=== PATIENT | female | born 1995 | race Caucasian/White ===

== ENCOUNTER 2017-11-09 13:22 | Emergency (ER) | payer BC, SELFPAY ==
[2017-11-09 13:26] VITALS: BP 142/84; PULSE 120; RESP 22; TEMP 36.7; O2SAT 100
[2017-11-09 13:30] VITALS: BP 142/84; PULSE 120; RESP 22; TEMP 36.7; O2SAT 100; BMI 20.3
[2017-11-09 13:31] VITALS: BMI 20.3
--- NOTE | 2017-11-09 13:34 | XR_ITS ---
XR chest AP COMPARISON: None HISTORY: Chest pain after falling off horse TECHNIQUE: AP upright chest FINDINGS: The lung dover are well expanded and appear clear of infiltrate. The cardiac silhouette and vascularity are normal. Is no obvious rib fracture on either side and there is no pneumothorax. IMPRESSION: Negative AP upright chest
--- NOTE | 2017-11-09 13:34 | CT_ITS ---
CT pelvis wo con COMPARISON: None HISTORY: Pelvic pain after falling of a horse TECHNIQUE: Multiple axial scans of the pelvis were obtained utilizing bony algorithm. Sagittal and coronal reformats were evaluated as well. FINDINGS: The iliac bones and pubic bones appear intact. The symphysis pubis appears normal. Both hips are normally articulated with no evidence of fracture. The soft tissues are normal. The uterus and urinary bladder appear grossly normal. IMPRESSION: Negative CT scan of the pelvis
--- NOTE | 2017-11-09 13:34 | CT_ITS ---
CT lumbar spine wo con COMPARISON: None HISTORY: Low back pain after falling off a horse TECHNIQUE: Multiple axial scans of the lumbar spine were obtained. Sagittal and coronal reformats were evaluated as well. FINDINGS: Curvature and alignment are normal. All lumbar vertebrae appear intact and disc spaces are well-maintained. There is no abnormal disc protrusion. The facet joints appear normal and the SI joints are normal. IMPRESSION: Normal CT scan lumbar spine
--- NOTE | 2017-11-09 13:34 | [facility].EDFALL ---
ED Disposition Clinical Impression: Fall from horse, Contusion of lower back and pelvis, initial encounter Disposition: Home, Self-Care Condition on Discharge: Fair Additional Instructions: 1- rest and head inj instructions. 2- ice. 3- use OTc medications for pain. 4- return if needed. 5- follow up with pcp in AM. - Critical Care Critical Care Time: No Attestation: On , the high probability of a clinically significant, sudden or life threatening deterioration of the following system(s) required my full and direct attention, intervention and personal management. The time I documented below is in addition to time spent performing reported procedures but includes the following listed in this critical care notation. Medical Decision Making - Earnest Inquiry Pt receiving controlled substance: Yes Earnest was queried for this patient: No Risks and benefits of using a controlled substance: were discussed with pt by me Vital Signs: 11/09/17 13:26 11/09/17 13:30 11/09/17 14:12 Temperature 98.1 F 98.1 F Temperature Source Oral Oral Pulse Rate [Left Brachial] 120 H Pulse Rate [Right Brachial] 120 H 87 Respiratory Rate 22 22 18 Blood Pressure [Left Arm] 142/84 142/84 128/80 Blood Pressure Mean [Left Arm] 103 103 96 Blood Pressure Source [Left Arm] Manual Cuff/ Auscultation Manual Cuff/ Auscultation Automatic Cuff Blood Pressure Position [Left Arm] Sitting Sitting Sitting 02 Sat by Pulse Oximetry 100 100 98 Oxygen Delivery Method Room Air Room Air Room Air 11/09/17 14:50 Temperature Temperature Source Pulse Rate [Left Brachial] Pulse Rate [Right Brachial] 91 H Respiratory Rate 18 Blood Pressure [Left Arm] 131/84 Blood Pressure Mean [Left Arm] 99 Blood Pressure Source [Left Arm] Automatic Cuff Blood Pressure Position [Left Arm] Sitting 02 Sat by Pulse Oximetry 100 Oxygen Delivery Method Room Air - Lab Data Lab Results 11/09/17 13:35: WBC 10.1, RBC 4.29, Hgb 13.3, Hct 41.2, MCV 96.1, MCH 30.9, MCHC 32.2, RDW 12.2, Plt Count 290, MPV 8.1, Neut % (Auto) 61.5, Lymph % (Auto) 30.9, [place] % (Auto) 4.3, Eos % (Auto) 2.5, Baso % (Auto) 0.8, Neut # (Auto) 6.2, Lymph # (Auto) 3.1, [place] # (Auto) 0.4, Eos # (Auto) 0.3, Baso # (Auto) 0.1 11/09/17 13:35: Sodium 140, Potassium 3.7, Chloride 104, Carbon Dioxide 25, Anion Gap 14.7, BUN 16, Creatinine 0.94, Estimated Creat Clear 87, Estimated GFR 74, Est GFR ( Amer) 90, Glucose 133 H, Calcium 8.8, Total Bilirubin 0.4, AST 15, ALT 20, Alkaline Phosphatase 78, Total Protein 7.5, Albumin 3.8, Globulin 3.7 H, Albumin/Globulin Ratio 1.0 L 11/09/17 13:35: Serum HCG, Qual Negative 11/09/17 15:20: Urine Color Yellow, Urine Appearance Sl cloudy, Urine pH 6.5, Ur Specific [place] 1.010, Urine Protein Negative, Urine Glucose (UA) Negative, Urine Ketones Negative, Urine Blood Negative, Urine Nitrate Negative, Urine Bilirubin Negative, Urine Urobilinogen 0.2, Ur Leukocyte Esterase Trace, Urine WBC 3-5, Ur Squamous Epith Cells 10-20, Urine Bacteria Trace Result diagrams: 11/09/17 13:35 11/09/17 13:35 Orders (Tests/Meds): ED MEDICATIONS Discontinued Medications Generic Name Dose Route Start Last Admin Trade Name Freq PRN Reason Stop Dose Admin Sodium Chloride 1,000 mls @ 999 mls/hr 11/09/17 14:15 11/09/17 13:30 Sod Chlor 0.9% 1000ml Bag IV 11/09/17 15:15 999 mls/hr .[id number] ROSELIA Administration Iopamidol 75 ml 11/09/17 15:17 11/09/17 15:18 [id number]; 75ml Vial IV 11/09/17 15:18 75 ml ONCE ONE Administration Morphine Sulfate 2 mg 11/09/17 13:34 11/09/17 13:35 Morphine 4mg/Ml Syringe IV 11/09/17 13:35 2 mg ONCE ONE Administration Ondansetron HCl 4 mg 11/09/17 13:34 11/09/17 13:35 Zofran 4mg/2ml Vial IV 11/09/17 13:35 4 mg ONCE ONE Administration Sodium Chloride 10 ml 11/09/17 15:17 11/09/17 15:18 Rad-Saline Flush 10ml Syringe IV 11/09/17 15:18 10 ml ONCE ONE Administration ORDERS Melissa
--- NOTE | 2017-11-09 13:37 | ED_ITS ---
ED Disposition Clinical Impression: Fall from horse, Contusion of lower back and pelvis, initial encounter Disposition: Home, Self-Care Condition on Discharge: Fair Additional Instructions: 1- rest and head inj instructions. 2- ice. 3- use OTc medications for pain. 4- return if needed. 5- follow up with pcp in AM. - Critical Care Critical Care Time: No Attestation: On , the high probability of a clinically significant, sudden or life threatening deterioration of the following system(s) required my full and direct attention, intervention and personal management. The time I documented below is in addition to time spent performing reported procedures but includes the following listed in this critical care notation. Medical Decision Making - Earnest Inquiry Pt receiving controlled substance: Yes Earnest was queried for this patient: No Risks and benefits of using a controlled substance: were discussed with pt by me Vital Signs: 11/09/17 13:26 11/09/17 13:30 11/09/17 14:12 Temperature 98.1 F 98.1 F Temperature Source Oral Oral Pulse Rate [Left Brachial] 120 H Pulse Rate [Right Brachial] 120 H 87 Respiratory Rate 22 22 18 Blood Pressure [Left Arm] 142/84 142/84 128/80 Blood Pressure Mean [Left Arm] 103 103 96 Blood Pressure Source [Left Arm] Manual Cuff/ Auscultation Manual Cuff/ Auscultation Automatic Cuff Blood Pressure Position [Left Arm] Sitting Sitting Sitting 02 Sat by Pulse Oximetry 100 100 98 Oxygen Delivery Method Room Air Room Air Room Air 11/09/17 14:50 Temperature Temperature Source Pulse Rate [Left Brachial] Pulse Rate [Right Brachial] 91 H Respiratory Rate 18 Blood Pressure [Left Arm] 131/84 Blood Pressure Mean [Left Arm] 99 Blood Pressure Source [Left Arm] Automatic Cuff Blood Pressure Position [Left Arm] Sitting 02 Sat by Pulse Oximetry 100 Oxygen Delivery Method Room Air - Lab Data Lab Results 11/09/17 13:35: WBC 10.1, RBC 4.29, Hgb 13.3, Hct 41.2, MCV 96.1, MCH 30.9, MCHC 32.2, RDW 12.2, Plt Count 290, MPV 8.1, Neut % (Auto) 61.5, Lymph % (Auto) 30.9, [place] % (Auto) 4.3, Eos % (Auto) 2.5, Baso % (Auto) 0.8, Neut # (Auto) 6.2 , Lymph # (Auto) 3.1, [place] # (Auto) 0.4, Eos # (Auto) 0.3, Baso # (Auto) 0.1 11/09/17 13:35: Sodium 140, Potassium 3.7, Chloride 104, Carbon Dioxide 25, Anion Gap 14.7, BUN 16, Creatinine 0.94, Estimated Creat Clear 87, Estimated GFR 74, Est GFR ( Amer) 90, Glucose 133 H, Calcium 8.8, Total Bilirubin 0.4, AST 15, ALT 20, Alkaline Phosphatase 78, Total Protein 7.5, Albumin 3.8, Globulin 3.7 H, Albumin/Globulin Ratio 1.0 L 11/09/17 13:35: Serum HCG, Qual Negative 11/09/17 15:20: Urine Color Yellow, Urine Appearance Sl cloudy, Urine pH 6.5, Ur Specific [place] 1.010, Urine Protein Negative, Urine Glucose (UA) Negative, Urine Ketones Negative, Urine Blood Negative, Urine Nitrate Negative, Urine Bilirubin Negative, Urine Urobilinogen 0.2, Ur Leukocyte Esterase Trace, Urine WBC 3-5, Ur Squamous Epith Cells 10-20, Urine Bacteria Trace Result diagrams: 11/09/17 13:35 11/09/17 13:35 Orders (Tests/Meds): ED MEDICATIONS Discontinued Medications Generic Name Dose Route Start Last Admin Trade Name Freq PRN Reason Stop Dose Admin Sodium Chloride 1,000 mls @ 999 mls/hr 11/09/17 14:15 11/09/17 13:30
[2017-11-09 13:51] LABS: Basophils # 0.1 K/mm3 (0-0.2); Basophils % 0.8 % (0.1-2.0); Eosinophils # 0.3 K/mm3 (0.0-0.4); Eosinophils % 2.5 % (0.1-12.0); Hematocrit 41.2 % (37.0-47.0); Hemoglobin 13.3 g/dL (12.2-16.2); Lymphocytes # 3.1 K/mm3 (0.7-4.5); Lymphocytes % 30.9 K/mm3 (10-50); Mean Corpuscular HGB Conc 32.2 g/dL (31.8-35.4); Mean Corpuscular Hemoglobin 30.9 pg (27.0-31.2); Mean Corpuscular Volume 96.1 fl (81-99); Mean Platelet Volume 8.1 fl (7.4-10.4); Monocytes # 0.4 K/mm3 (0.1-1.0); Monocytes % 4.3 % (1.7-9.3); Neutrophils # 6.2 K/mm3 (1.8-7.8); Neutrophils % 61.5 % (37.0-80.0); Platelet Count 290 K/mm3 (142-424); Red Blood Count 4.29 M/mm3 (4.20-5.40); Red Cell Distribution Width 12.2 % (11.5-17.5); White Blood Count 10.1 K/mm3 (4.8-10.8)
[2017-11-09 13:59] LABS: Alanine Aminotransferase 20 U/L (12-78); Albumin Level 3.8 gm/dL (3.4-5.0); Alkaline Phosphatase 78 U/L (46-116); Anion Gap 14.7 mEq/L (5-15); Aspartate Amino Transferase 15 U/L (15-37); Bilirubin,Total 0.4 mg/dL (0.2-1.0); Blood Urea Nitrogen 16 mg/dL (7-18); Calcium 8.8 mg/dL (8.5-10.1); Carbon Dioxide 25 mmol/L (21.0-32.0); Chloride 104 mmol/L (98-107); Creatinine Clearance Estimated 87 mL/min (0-300); Creatinine,Serum 0.94 mg/dL (0.55-1.02); Estimated Glomerular Filt Rate 74 ml/min (>60); GFR (African American) 90 ML/MIN (>60); Globulin 3.7 gm/dl (1.3-3.2); Glucose 133 mg/dL (74-106); Potassium 3.7 mmoL/L (3.5-5.1); Sodium 140 mmol/L (136-145); Total Protein,Serum 7.5 gm/dL (6.4-8.2)
--- NOTE | 2017-11-09 14:04 | PC.NURSE ---
Pt return from radiology at this time.
[2017-11-09 14:12] VITALS: BP 128/80; PULSE 87; RESP 18; O2SAT 98
[2017-11-09 14:18] LABS: HCG Qualitative, Serum Negative (Negative)
--- NOTE | 2017-11-09 14:27 | PC.NURSE ---
Dr. Kirkpatrick called at this time, stated CTs and Xray on pt are negative, notified ER
--- NOTE | 2017-11-09 14:49 | CT_ITS ---
CT abdomen pelvis w con COMPARISON: None HISTORY: Abdominal pain after patient falling off a horse TECHNIQUE: Multiaxial scans obtained from hemidiaphragms the pelvic floor and were performed with IV contrast only. Sagittal and coronal reformats were evaluated as well. FINDINGS: The lower lung dover are clear and there is no pleural fluid. The liver spleen stomach and pancreas appear grossly normal. There is moderate food particles and fluid within the stomach and the gallbladder is contracted. No definite gallstones are seen however. The adrenal glands are normal. The kidneys are normal in size and show symmetrical function with no evidence of traumatic injury. Small bowel is normal. There is large amount stool throughout the colon. Urinary bladder is partially decompressed and shows a mildly diffusely thickened wall and this may be due to lack of distention or could possibly reflect some degree of cystitis. The uterus is normal in size and in the midline. There is no free fluid in the pelvis. IMPRESSION: No evidence of traumatic injury to the abdomen or pelvis, there likely is some degree of constipation.
[2017-11-09 14:50] VITALS: BP 131/84; PULSE 91; RESP 18; O2SAT 100
--- NOTE | 2017-11-09 15:04 | PC.NURSE ---
Pt to CT at this time for CT abd/pelvis with IV contrast per ER Order
--- NOTE | 2017-11-09 15:30 | PC.NURSE ---
pt returned from rad
[2017-11-09 15:32] LABS: Microscopic, Urine URINE MICROSCOPIC (MICROSCOPIC)
[2017-11-09 15:37] LABS: Appearance,Urine SL CLOUDY (Clear); Bilirubin,Urine Negative (Negative); Blood, Urine Negative (Negative); Color,Urine YELLOW (Yellow); Glucose,Urine (UA) Negative (Negative); Ketones,Urine Negative (Negative); Leukocyte Esterase,Urine TRACE (Negative); Nitrate,Urine Negative (Negative); PH,Urine 6.5 (5.0-8.5); Protein,Urine Negative (Negative); Urobilinogen,Urine 0.2 EU/dl (0.2)
[2017-11-09 15:44] LABS: Bacteria,Urine Trace /lpf
[2017-11-09 16:37] VITALS: BP 108/66; PULSE 98; RESP 20; TEMP 36.7; O2SAT 98
== END 2017-11-09 16:37 | disposition home or self-care (01) ==
PROVIDERS: Emergency Provider Emergency Medicine
DX: S30.0XXA Contusion of lower back and pelvis, initial encounter (principal); V80.010A Animal-rider injured by fall from or being thrown from horse in noncollision accident, initial encounter
CPT/HCPCS: 71045; 72131; 72192; 74177; 80053; 81001; 84703; 85025; 96365; 96375; 99291; J2405; Q9967

== ENCOUNTER → 2020-12-06 14:17 | Outpatient (CLI) | payer OTHER, SELFPAY ==
[2020-12-06 14:25] LABS: Chloride 104 mmol/L (98-107); Potassium 4.4 mmoL/L (3.5-5.1); Sodium 137 mmol/L (136-145)
[2020-12-06 14:27] LABS: Blood Urea Nitrogen 21 mg/dl (7-17); Estimated Glomerular Filt Rate 76 ml/min (>60); GFR (African American) 92 ML/MIN (>60)
[2020-12-06 14:28] LABS: Anion Gap 11.4 mEq/L (5-15); Calcium 9.4 mg/dl (8.4-10.2); Carbon Dioxide 26 mmol/L (22.0-30.0); Glucose 87 mg/dl (74-100); Magnesium 1.8 mg/dl (1.6-2.3)
[2020-12-06 14:34] LABS: C-Reactive Protein < 0.3 mg/L (0-4)
[2020-12-06 18:50] LABS: Erythrocyte Sedimentation Rate 19 mm/hr (0-20)
== END ==
PROVIDERS: Visit Provider Physician Assistant
DX: M62.838 Other muscle spasm (principal)
CPT/HCPCS: 80048; 83735; 85651; 86140

== ENCOUNTER → 2020-12-21 11:14 | Outpatient (CLI) | payer OTHER, SELFPAY | PROVIDERS: PCP Physician Assistant; Visit Provider Physician Assistant | DX: M79.601 Pain in right arm (principal) ==